=== PATIENT | female | born 1955 | race Caucasian/White ===

== ENCOUNTER 2016-09-02 12:48 | Emergency (ER) | payer MEDICARE, OTHER ==
[2016-09-02] MEDS ORDERED: MOBIC7.5 M2 PO (13:29)
[2016-09-02] MEDS ORDERED: ULTRAM50 M1 PO (13:29)
[2016-09-02] MEDS ORDERED: CYMBALTA60 M1 PO (13:29)
[2016-09-02] MEDS ORDERED: MIRAPEX0.5 M1 PO (13:29)
[2016-09-02] MEDS ORDERED: LEVOCETIRIZINE D5 M1 PO (13:30)
[2016-09-02] MEDS ORDERED: MULTIVITAMINS1 EAC6 PO (13:30)
[2016-09-02] MEDS ORDERED: ASPIRIN81 M1 PO (13:30)
[2016-09-02] MEDS ORDERED: PROBIOTIC1 EAC9 PO (13:31)
[2016-09-02] MEDS ORDERED: VITAMIN D5000 UNI1 PO (13:31)
[2016-09-02 14:00] LABS: URINE BILIRUBIN SMALL (NEG); URINE BLOOD NEGATIVE (NEG); URINE GLUCOSE (UA) NEGATIVE (NEG); URINE KETONE NEGATIVE (NEG); URINE LEUKOCYTE ESTERASE POSITIVE (NEG); URINE NITRITE NEGATIVE (NEG); URINE PROTEIN SMALL (NEG); URINE SPECIFIC GRAVITY 1.015 (1.003-1.030)
[2016-09-02 14:05] LABS: URINE APPEARANCE HAZY; URINE COLOR YELLOW
[2016-09-02 14:06] LABS: BASO % 0.4 % (0-2); EOS % 3.6 % (0-7); EOSINOPHIL ABSOLUTE COUNT 0.3 tho/cmm (0.0-0.7); HCT-HEMATOCRIT 41.1 % (34.0-49.0); HGB-HEMOGLOBIN 13.7 gm/dl (12.0-15.5); IMMATURE GRANULOCYTES ABSOLUTE 0.03 tho/cmm (0-0.03); IMMATURE GRANULOCYTES PERCENT 0.3 % (0-0.3); LYMPH % 25.6 % (20-45); LYMPH ABSOLUTE COUNT 2.3 tho/cmm (0.8-4.5); MCH (MEAN CORPUSCULAR HGB) 29.1 pg (28.0-32.0); MCHC MEAN CORPUSCULAR HGB CONC 33.3 % (32.0-36.0); MCV (MEAN CELL VOLUME) 87.4 fl (82.0-96.0); MEAN PLATELET VOLUME 9.5 cmc (9.4-12.4); MONO % 6.5 % (0-12); MONOCYTE ABSOLUTE COUNT 0.6 tho/cmm (0.0-1.2); NEUTROPHIL ABSOLUTE COUNT 5.7 tho/cmm (1.6-8.0); NEUTROPHIL-AUTOMATED 5.7 tho/cmm (1.6-8.0); NEUTROPHILS % 63.6 % (40-80); PLATELET COUNT 301 tho/cmm (150-450); RED CELL DISTRIBUTION WIDTH 12.8 % (12.4-16.4); WHITE BLOOD COUNT 8.9 tho/cmm (4.0-10.0)
[2016-09-02] MEDS ORDERED: DEXILANT30 M1 PO (14:06)
[2016-09-02 14:08] LABS: URINE BACTERIA 2+; URINE EPITHELIAL CELLS 0 /[HPF] (0-10)
[2016-09-02 14:22] LABS: ALB/GLOB RATIO 1.1 (0.8-2.0); ALBUMIN 3.7 g/dl (3.5-5.0); ALKALINE PHOSPHATASE 99 U/L (33-138); ALT/SGPT 42 U/L (12-78); ANION GAP 13 mmol/L (0-20); AST/SGOT 22 U/L (10-40); BILIRUBIN,TOTAL 0.4 mg/dl (0-1.5); BLOOD UREA NITROGEN 17 mg/dl (6-24); CARBON DIOXIDE-VENOUS 27 mmol/L (22-32); CHLORIDE 105 mmol/l (96-110); CREATININE 0.91 mg/dl (0.50-1.10); GLUCOSE 108 mg/dL (70-110); LIPASE 147 U/L (73-393); POTASSIUM 4.2 mmol/L (3.7-5.1); SODIUM 141 mmol/L (135-145); eGFR VALUE FOR BLACK 79 mL/Min
[2016-09-02] MEDS ORDERED: BACTRIM DS TAB1 EAC2 PO (15:13)
[2016-09-02] MEDS ORDERED: NORCO 5-325 TA1 EACH PO (15:14)
== END 2016-09-02 15:27 ==
LOC: EDMED 12:48
PROVIDERS: Emergency Medicine
DX: R10.11 Right upper quadrant pain (principal); G35 Multiple sclerosis; Z90.89 Acquired absence of other organs; Z87.891 Personal history of nicotine dependence; Z79.82 Long term (current) use of aspirin; Z79.899 Other long term (current) drug therapy